=== PATIENT | male | born 1940 | race African-American/Black ===

== ENCOUNTER 2020-01-05 06:37 | Emergency (ER) | payer MEDICAID ==
[~2020-01-05] VITALS: Ht 167.6 cm; Wt 73.0 kg
[2020-01-05 06:41] VITALS: BP 120/72
[2020-01-05] MEDS ORDERED: FLUORESCEIN SODIUM 1MG/STRIP LEFTEYE ONE (07:30)
[2020-01-05] MEDS ORDERED: TETRACAINE 0.5% OPHTH DROPS 4ML LEFTEYE ONE (07:30)
[2020-01-09] MEDS ORDERED: ERYT1OIN6 EACHEYE (13:56)
== END 2020-01-05 09:05 | disposition home or self-care (01) ==
LOC: ER 06:37
DX: S02.32XA Fracture of orbital floor, left side, initial encounter for closed fracture (principal); Y08.89XA Assault by other specified means, initial encounter; Y93.89 Activity, other specified; Y92.89 Other specified places as the place of occurrence of the external cause; Y99.9 Unspecified external cause status
CPT/HCPCS: 70486; 93005; 99285